=== PATIENT | male | born 1955 | race Caucasian/White ===

== ENCOUNTER 2021-11-17 15:00 | Outpatient (RCR) | payer OTHER, SELFPAY ==
--- NOTE | 2021-09-14 11:32 | OTOPEVAL ---
OCCUPATIONAL THERAPY INITIAL EVALUATION REPORT 09/14/21 Thank you for referring Harjinder Carmona to [facility].? The patient is scheduled to be seen for therapy? 2x/week for 4 weeks. Please review, sign, date and return this plan of care ALESSIA. I agree with and certify that the following plan of care is medically necessary. Referring Physician Date Referring Provider: Spike De Jesus, *OT Outpatient Evaluation Start: 09/14/21 10:25 Outpatient Past Medical History Past Medical History Source of Past Medical History Recalled from Previous Visit, Confirmed with Patient/Family Neurological History Hx Neurological Disorders No Significant History Cardiovascular History Hx Myocardial Infarction Yes Respiratory History Hx Emphysema Yes Musculoskeletal History Hx Arthritis Yes Hx Back Pain Yes Hx Joint Replacement Yes: Rt CMC arthroplasty 2020 Hx Other Musculoskeletal Disorders Yes: herniated disc - lumbar spine Endocrine History Hx Endocrine Disorders No Significant History Evaluation Information Problem Diagnosis s/p right CMC arthroplasty Onset 07/23/21 Additional Evaluation Detail Patient also had a carpal tunnel release at the time of the arthroplasty. Subjective Information Since surgery, noticing return Query Text:As Reported By Patient/ in the sensation on the palm, Family but does report numbness on the dorsal side. 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 Pain with griping, pinching, using a customer resource specialist, etc . Notes pain and weakness are limiting. He states the pain continues to wake him up at night. 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 Prior Level of Function Activity Level (Last 3 Months) Occupation Manual labor - siding instillation Hand Dominance Right Pain Assessment Timing of Pain Assessment Timing of Pain Assessment Assessment Pain Scale Pain Scale Used Numeric (1 - 10) Self Report Pain Assessment Right Hand(s) Reported Pain Level 3 Pain Description Aching Pain Frequency Continuous Lowest Pain Intensity 3 Greatest Pain Intensity 9 Pain Score Pain Score 3: Self Report Interventions Used Interventions Used By Clinicians Education,Exercise,Paraffin Upper Ext
--- NOTE | 2021-09-24 08:02 | PCOTNOTE ---
Patient called & cancelled scheduled appointment this date due to not feeling well.
--- NOTE | 2021-09-29 09:35 | PCOTNOTE ---
Patient did not show up for scheduled appointment this date. Called patient who states he thought his appointment was at 10:00.
--- NOTE | 2021-10-08 08:15 | PCOTNOTE ---
Patient called & cancelled scheduled appointment this date due to having car problems.
--- NOTE | 2021-10-15 08:29 | PCOTNOTE ---
Patient did not show up for scheduled appointment this date.
--- NOTE | 2021-10-23 15:58 | OTOPEVAL ---
OCCUPATIONAL THERAPY RE-EVALUATION AND POC UPDATE 10/23/21 Danny Grande , is a 65 year-old, right handed male who is s/p CMC arthroplasty and carpal tunnel release ~13 weeks ago. He has been participating in outpatient hand therapy x4 weeks. OT has been focusing on pain control through paraffin, manual therapy, and exercise. He has made great improvements with functional ROM and use. His student records specialist and pinch strengths have improved, but continue to be weak. Continued skilled OT indicated for progression of resistive exercise, modalities, manual therapy, and functional therapeutic exercise to facilitate optimal functional use of the right UE. Thank you for referring Harjinder Carmona to [facility].? The patient is scheduled to be seen for continued occupational therapy? 2x/week for 4 weeks. Please review, sign, date and return this plan of care ALESSIA. I agree with and certify that the following plan of care is medically necessary. Referring Physician Date Referring Provider: Spike De Jesus, *OT Outpatient Re-Evaluation Start: 09/14/21 10:25 Diagnosis s/p right CMC arthroplasty Onset 07/23/21 Subjective Information Since beginning therapy, he Query Text:As Reported By Patient/ notes improvements with his Family flexibility and strength. He notes improved ability to start his car, light a mental retardation nurse , use a cane tailer in, and buttons. He does note some instances of waking up at night due to the hand pain still. He continues to take pain medication daily. He does note that his hand feels better after therapy. Pain Assessment Timing of Pain Assessment Timing of Pain Assessment Re-assessment Pain Scale Pain Scale Used Numeric (1 - 10) Self Report Pain Assessment Right Hand(s) Reported Pain Level 3 Pain Description Aching,Dull Other Pain Description Swollen Lowest Pain Intensity 3 Greatest Pain Intensity 6 Pain Score Pain Score 3: Self Report Additional Pain Score Comments Patient continues to report pain at a 3-4/10 on a daily basis. His worst pain reduced from 9/10 to 5-6/10. Interventions Used Interventions Used By Clinicians Exercise,Manual Therapy Techniques,Paraffin Upper Extremity Range of Motion Elbow/Forearm Range of Motion Right Reason Not Measured WNL/Right Forearm Supination - Active 80 Forearm Pronation - Active 80 Elbow/Forearm Range of Motion Comments Elbow flex/ext WNL. Forearm pro/sup WNL with some discomfort with end range
--- NOTE | 2021-11-04 12:10 | PCOTNOTE ---
Patient called & cancelled scheduled appointment this date due to the weather.
--- NOTE | 2021-11-17 15:25 | OTOPEVAL ---
OCCUPATIONAL THERAPY RE-EVALUATION AND DISCHARGE SUMMARY 11/17/21 Danny Grande , is a 65 year-old, right handed male who is s/p CMC arthroplasty and carpal tunnel release ~4 months ago. He has been participating in outpatient hand therapy x8 weeks. OT has been focusing on pain control through paraffin, manual therapy, and exercise. He has made great improvements with functional ROM and use. He is now able to use his hand for more functional tasks and has been having less pain with use. Discharging today with HEP. Thank you for referring Harjinder Carmona to [facility].? Please review, sign, date and return this D/C Note ALESSIA. I agree with and certify that the following plan of care is medically necessary. Referring Physician Date Referring Provider: Spike De Jesus, *OT Outpatient Re-Evaluation Start: 09/14/21 10:25 Problem Diagnosis s/p right CMC arthroplasty Onset 07/23/21 Additional Evaluation Detail Patient also had a carpal tunnel release at the time of the arthroplasty. Subjective Information Danny Grande , reports Query Text:As Reported By Patient/ improvements in the past month Family . He states that his pain has reduced and notes that he no longer wakes up in the middle of the night from the pain. He states the tingling and swelling has also improved. He states that functionally he is able to do all the things he needs to do for himself, but notes having some residual pain with certain activities. Pain Assessment Timing of Pain Assessment Timing of Pain Assessment Re-assessment Pain Scale Pain Scale Used Numeric (1 - 10) Self Report Pain Assessment Right Hand(s) Reported Pain Level 3 Pain Description Aching,Dull Lowest Pain Intensity 3 Greatest Pain Intensity 4 Pain Score Pain Score 3: Self Report Interventions Used Interventions Used By Clinicians Education,Exercise Upper Extremity Range of Motion Elbow/Forearm Range of Motion Right Reason Not Measured WNL/Right Forearm Supination - Active 85 Forearm Pronation - Active 85 Elbow/Forearm Range of Motion Comments Elbow flex/ext WNL. Wrist Range of Motion Right Wrist Flexion - Active 60 Wrist Extension - Active 60 Wrist Radial Deviation - Active 20 Wrist Ulnar Deviation - Active 25 Wrist Range of Motion Comments Since the start of care: Flexion improved from 45* Extension improved from 55* RD improved from 15*
== END 2021-11-17 15:57 | disposition home or self-care (01) ==
LOC: ANHOT 15:00
PROVIDERS: PCP Internal Medicine Gastroenterology; Visit Provider Orthopaedic Surgery
DX: Z47.89 Encounter for other orthopedic aftercare (principal)
CPT/HCPCS: 97018; 97110; 97140; 97165

== ENCOUNTER 2024-10-26 09:14 | Emergency (ER) | payer MEDICARE, SELFPAY ==
--- NOTE | ~2024-10-26 | XR_ITS ---
EXAMINATION: XR chest 2V DATE: 10/26/2024 10:22 INDICATION: Cough. TECHNIQUE: Frontal and lateral views of the chest were obtained on 3 radiographs. COMPARISON: None. FINDINGS: There is no pneumonia, pleural effusion, or pneumothorax. The heart size is normal. IMPRESSION: 1. No acute cardiopulmonary disease. Reviewed, dictated and finalized at location B. ING COORDINATOR
--- NOTE | 2024-10-26 09:21 | ED.URI ---
HPI - URI/Sore Throat General Chief Complaint: Upper Respiratory Infection Stated Complaint: cough pneumonia exp flu exp Time Seen by Provider: 10/26/24 09:17 Source: patient Mode of arrival: ambulatory Limitations: no limitations History of Present Illness HPI Narrative: Patient is a 68-year-old male cough and congestion for 3-5 days. Patient states he is unsure when it started. Patient has not taken anything for symptoms. Reports both have been diagnosed with pneumonia this week. Has also been exposed to influenza in the household. Denies any fever, chills, nausea, vomiting, diarrhea. Patient smokes a pack and half a day. Related Data Home Medications ?Medication ?Instructions ?Recorded ?Confirmed ?Last Taken ?Type atorvastatin 10 mg tablet 10 mg PO QPM 10/26/24 10/26/24 Unknown History clopidogrel 75 mg tablet 75 mg PO DAILY 10/26/24 10/26/24 Unknown History isosorbide mononitrate 60 mg 60 mg PO DAILY 10/26/24 10/26/24 Unknown History tablet,extended release 24 hr pantoprazole 20 mg tablet,delayed 20 mg PO Q12H 10/26/24 10/26/24 Unknown History release Allergies Allergy/AdvReac Type Severity Reaction Status Date / Time No Known Allergies Allergy Verified 10/26/24 09:33 Review of Systems Review of Systems: All systems reviewed & are unremarkable except as noted in HPI and below Constitutional: Constitutional: Denies body ache(s), Denies chills, Denies fatigue, Denies fever(s), Denies headache(s), Denies malaise and Denies weakness Eyes: Eyes: Denies blurry vision, Denies itchy eyes and Denies loss of vision ENT: Denies otalgia, Denies headache(s), Reports nasal congestion, Denies sinus pain and Denies sore throat Cardiovascular: Cardiovascular: Denies chest pain, Denies irregular heart rhythm and Denies dyspnea Respiratory: Respiratory: Reports cough and Denies dyspnea Gastrointestinal: Gastrointestinal: Denies abdominal pain, Denies diarrhea, Denies nausea and Denies vomiting Musculoskeletal: Musculoskeletal: Denies back pain, Denies myalgias and Denies arthralgias Integumentary/Breasts: Skin/Breast: Denies pruritus and Denies rash Neurologic: Denies headache(s), Denies loss of vision and Denies weakness Psychiatric: Psychiatric: Reports no additional psychiatric complaints Endocrine: Endocrine: Denies fatigue Allergic/Immunologic: Allergic/Immunologic: Denies itchy eyes PMFSH Social History Social History Smoking status: Never smoker Tobacco type: cigarettes Second hand tobacco smoke exposure: No Alcohol intake: never Substance use: never Substance use type: does not use Comments At time of signature, agree with nursing past medical, surgical, social and family history. There is no relevant family history pertinent to the presenting complaint. Exam Const: General: cooperative, healthy appearing, comfortable, no acute distress and well nourished Nutritional Appearance: well nourished Orientation/consciousness: patient oriented x3 Limitations: no limitations HENMT: Head: normal to inspection, normocephalic and atraumatic Ears: hearing grossly normal bilaterally, external ears normal, TM's normal bilaterally, EAC's normal and no periauricular adenopathy Face/Nose/Sinus: Normal external nose present, Abnormal mucous membranes and turbinates present erythematous bilateral and diffuse, normal facial exam, sinuses nontender and face symmetric Face and sinus: normal facial exam, sinuses nontender and face symmetric Mouth: Yes Normal oral and palatal mucosa present, Yes lip normal, Yes tongue normal, Yes Normal salivary glands and ducts present, Yes oropharynx normal and Yes moist mucous membranes Teeth and gingiva: dentition normal Throat: posterior oropharynx normal, tonsils normal and uvula midline Eyes: General: appearance normal, both eyes and all related structures Alignment and Position: alignment normal and position normal Periorbital: periorbital findings normal Eyelids: eyelids normal Pupils: Equal, round and reactive pupils present Neck: Neck: normal visual inspection, full ROM, no lymphadenopathy and supple Chest: Chest palpation & inspection: normal inspection of the chest and normal palpation of entire chest wall Resp: Effort & Inspection: normal respiratory effort and able to speak in complete sentences Auscultation: no crackles, no rales, rhonchi left upper, no wheezes and diminished lung sounds diffuse Cardio: Rate: regular rate Rhythm: regular rhythm Heart sounds: S1 normal heart sound present and S2 normal heart sound present GI: Inspection: normal to inspection Skin: General skin exam: normal color and no rashes or lesions noted Neuro: General: patient oriented x3 and moves all extremities Cranial nerves: Yes Equal, round and reactive pupils present Speech: normal speech Gait exam (Neuro): Normal gait present Extrem: General: normal to inspection, full ROM and no edema Psych: Appearance: grossly normal and well kempt Mental Status: mental status grossly normal Speech and movement: Normal speech and movement present Affect: normal affect Attitude: cooperative Thought process: Normal thought process present Course Course Emergency Course: Discharge instructions reviewed with patient, as well as provided in writing per nursing staff. The instructions also include specific and strict return/GO TO THE ER as well as f/u information. All questions have been answered, and the patient deny any further questions with discharge and discharge plan. Portions of this record may have been created with voice recognition software Level of Care: Express Care Visit Vital Signs Vital signs: Vital Signs Temperature 36.2 C L 10/26/24 09:33 Pulse Rate 83 10/26/24 09:33 Respiratory Rate 16 10/26/24 09:33 Blood Pressure 123/82 10/26/24 09:33 Pulse Oximetry 97 10/26/24 09:33 Oxygen Delivery Room Air 10/26/24 09:33 Temperature 36.2 C L 10/26/24 09:33 Pulse Rate 83 10/26/24 09:33 Respiratory Rate 16 10/26/24 09:33 Blood Pressure 123/82 10/26/24 09:33 Pulse Oximetry 97 10/26/24 09:33 Oxygen Delivery Room Air 10/26/24 09:33 Reviewed MDM - URI/Sore Throat MDM Narrative Medical decision making narrative: Pt well hydrated appearing, in no respiratory distress, hemodynamically stable. Recommend supportive care. The patient is stable at time of discharge the clinical impression was discussed and the patient was given the opportunity to ask questions, which were addressed as completely as possible given the information available at present. Anticipatory guidance and return to care precautions were discussed and the importance of primary care follow-up was stressed and encouraged. The patient voiced understanding of the plan, indications to return, and the need for follow-up. Differential diagnosis considered: Jimenez virus, strep pharyngitis, allergic rhinitis, upper respiratory tract infection, sinusitis, rhinosinusitis, nasopharyngitis. viral pharyngitis, otitis media, otitis externa, otitis effusion, foreign body, cerumen impaction, viral syndrome, and influenza.? Exam findings show no acute concerns or changes; patient is non-toxic appearing and is in no distress.? Patient is appropriate for outpatient treatment and follow-up.? Medical Records Attestation: I reviewed the patient's medical records. Lab Data Attestation: I reviewed the patient's lab results. Labs: Lab Results 10/26/24 Range/Units 10:28 POC Influenza A Ag Negative (Negative) POC Influenza B Ag Negative (Negative) POC SARS CoV-2 Ag Negative (Negative) Imaging Data Radiologist's impression: EXAMINATION: XR chest 2V DATE: 10/26/2024 10:22 INDICATION: Cough. TECHNIQUE: Frontal and lateral views of the chest were obtained on 3 radiographs. COMPARISON: None. FINDINGS: There is no pneumonia, pleural effusion, or pneumothorax. The heart size is normal. IMPRESSION: 1. No acute cardiopulmonary disease. Discharge Plan Discharge Clinical Impression: Upper respiratory infection Qualifiers: URI type: unspecified viral URI Qualified Code(s): J06.9 - Acute upper respiratory infection, unspecified Patient Disposition: Home, Self-Care Condition: Stable Instructions: Upper Respiratory Infection (ED) Additional Instructions: Urine negative for COVID and flu. Your chest x-ray showed no signs of pneumonia. Use Tessalon Perles as needed for cough. Use inhaler with spacer as needed. Other symptomatic treatments include: -Alternate Tylenol and Motrin per package directions for fever or pain: Tylenol 650-1000mg by mouth every 4-6 hours. Do not exceed 4000mg in 24 hours. Advil (Ibuprofen) 600 mg by mouth every 6 hours. Do not exceed 2400mg in 24 hours. 8 AM: Tylenol 11 AM: Ibuprofen 2 PM: Tylenol 5 PM: Ibuprofen 8 PM: Tylenol 11 PM: Ibuprofen 2 AM: Tylenol 5 AM: Ibuprofen -Antihistamine medication such as Benadryl at night and Zyrtec/Claritin/Sunshine during the day can help improve symptoms. -Use Flonase twice a day for 5 days then daily to help reduce the inflammation and dry up your sinuses. -You can also use Sudafed or Mucinex. Be sure to drink plenty of water with these medications at least 8 ounces with every dose and it is important to drink 8 to 10 glasses of water per day. Water is a natural decongestant -Eat and drink things that are easy to swallow, like tea or soup, or popsicles. -Oral rinses such as: Salt water gargles and/or may use topical anesthetic (eg. Chloraseptic spray) or lozenges to relieve dryness or throat pain). -Frequent hand washing or hand administrator social welfare is one of the best ways to prevent spread of infection. -Using a vaporizer or humidifier at night will also help thin secretions and help with coughing up phlegm. -Follow up with primary care provider in 3-5 days if condition is not improving - For new or worsening symptoms go directly to the nearest ER Patient Language: Togolese Prescriptions: New (DME) Aerochamber MV Spacer See Rx Instructions .Route Qty: 1 0RF Rx Instructions: As directed benzonatate 100 mg capsule 100 mg PO BID PRN (Reason: cough) Qty: 14 0RF albuterol sulfate 90 mcg/actuation HFA aerosol inhaler 2 puff inhalation QID PRN (Reason: shortness of breath or wheezing) Qty: 6.7 0RF fluticasone propionate [Flonase Allergy Relief] 50 mcg/actuation spray,suspension 1 spray intranasal DAILY Qty: 16 0RF Rx Instructions: administer into each nostril No Action atorvastatin 10 mg tablet 10 mg PO QPM clopidogrel 75 mg tablet 75 mg PO DAILY isosorbide mononitrate 60 mg tablet extended release 24 hr 60 mg PO DAILY pantoprazole 20 mg tablet,delayed release (DR/EC) 20 mg PO Q12H Follow-up/Referrals: Johnie,Patricio Caputo MD [Primary Care Provider] - 3 Days Time of Disposition: 10:43
[2024-10-26 09:33] VITALS: BP 123/82; PULSE 83; RESP 16; TEMP 36.2; O2SAT 97
[2024-10-26 10:30] LABS: EDCOVIDSCREEN Negative (Negative); EDINFLUASCREEN Negative (Negative); EDINFLUBSCREEN Negative (Negative)
== END 2024-10-26 10:51 | disposition home or self-care (01) ==
PROVIDERS: Emergency Provider Nurse Practitioner Family; PCP Internal Medicine Gastroenterology
DX: J06.9 Acute upper respiratory infection, unspecified (principal); Z20.822 Contact with and (suspected) exposure to COVID-19
CPT/HCPCS: 71046; 87426; 87804; 99213; G0463